=== PATIENT | female | born 1970 | race Caucasian/White ===

== ENCOUNTER → 2017-08-21 | Outpatient (CLI) | payer BC | END | disposition home or self-care (01) | LOC: KCIC MAMMO 14:48 | DX: Z12.31 Encounter for screening mammogram for malignant neoplasm of breast (principal) | CPT/HCPCS: 77063; 77067 ==

== ENCOUNTER → 2017-08-31 | Outpatient (CLI) | payer BC | END | disposition home or self-care (01) | LOC: KCIC MAMMO 09:49 | DX: N63.10 Unspecified lump in the right breast, unspecified quadrant (principal); N60.01 Solitary cyst of right breast; N64.89 Other specified disorders of breast | CPT/HCPCS: 76641; 77065 ==

== ENCOUNTER → 2018-02-28 | Outpatient (CLI) | payer BC | END | disposition home or self-care (01) | LOC: KCIC US 13:51 | DX: R92.8 Other abnormal and inconclusive findings on diagnostic imaging of breast (principal) | CPT/HCPCS: 76641 ==

== ENCOUNTER → 2018-09-19 | Outpatient (CLI) | payer BC ==
--- NOTE | 2018-09-19 09:53 | KCIC ---
Examination: Ultrasound pelvis HISTORY: History of irregular menses. COMPARISON: None available. FINDINGS: The uterus measures 9.1 x 5.3 x 3.8 cm. The endometrium measures 1.2 mm in thickness. The right ovary measures 2.7 x 2 0.6 to 1.7 cm. The left ovary measures 2.0 x 2.0 x 1.3 cm. Blood flow identified in the left ovary. The evaluation of the right ovary is limited on this examination as it was difficult to visualized the right ovary. IMPRESSION: Limited examination as the right ovary was difficult to visualize, otherwise unremarkable exam. Electronically signed by: Haroon Abraham MD (09/19/2018 9:50 AM) [place] [id number]
== END | disposition home or self-care (01) ==
LOC: KCIC US 08:29
PROVIDERS: ATTEND Family Medicine
DX: N92.6 Irregular menstruation, unspecified (principal)
CPT/HCPCS: 76830; 76856